=== PATIENT | female | born 1950 | race Caucasian/White ===

== ENCOUNTER → 2018-09-23 | Day surgery (SDC) | payer MEDICARE, BC ==
[~2018-09-23] MED LIST: ACYC400T PO; AMLO2.5T5 PO; CELE100C PO; CLOP75TA PO; CRESTOR20 MG PO; DULO60CA6 PO; EZET10TA18 PO; GABA800T5 PO; GLIP5TAB10 PO; HYDR12.575 PO; IPRA4AER IH; ISOS60TA2 PO; IV RINGERS,LACTATED 1000ML 1,000 ML IV SCH; LIDOCAINE 1% PF 2 ML VIAL. ID PRN; LIDOCAINE 2% PF 5 ML VIAL. ONE; METF10007 PO; METO-239 PO; MIDAZOLAM HCL/PF 2 MG/2 ML VIAL. IV PRN; PANT20TA2 PO; PROPOFOL 20 ML IV ONE; PROPOFOL 40 ML IV ONE; SITA50TA PO; TRAM50TA PO; fentaNYL PF VIAL 100 MCG/2 ML VIAL IV PRN
[2018-09-23 09:29] VITALS: BP 149/61
--- NOTE | 2018-09-26 16:05 | PATHOLOGY ---
[facility] Accession Number: [id number] . 01 Material submitted: . esophagus - DISTAL ESOPHAGEAL . Modifiers: distal . 01 Clinical history: . GERD/HX colon polyps . 02 Diagnosis: Esophagus, distal, biopsy: - Hyperplastic squamous epithelium. - Adjacent columnar epithelium with mild to moderate chronic inflammation. - No evidence of intestinal metaplasia. (SKM:adán; 09/26/2018) MBR/09/26/2018 . 02 Electronically signed: . Arthur Hawkins MD, Pathologist NPI- [id number] . 01 Gross description: . The specimen is received in formalin, labeled "Maurisio, Radha, distal esophageal biopsies" and consists of multiple translucent fragments of whalen-pink tissue measuring 1.1 x 0.5 x 0.1 cm in aggregate which are entirely submitted in A1. (SDY; 09/23/2018) SYU/SYU . 02 Pathologist provided ICD-10: K20.9 . 02 CPT . 888371 Specimen Comment: A courtesy copy of this report has been sent to Specimen Comment: [phone]. Specimen Comment: Report sent to Performed at: 01 [facility] [address], [place] [id number] MD Randy Ramos MD Phone: [phone] Performed at: 02 [facility] [address] [place], [place] [id number] MD Chai Lee MD Phone: [phone]
== END ==
LOC: SURG 07:14
PROVIDERS: ATTEND Internal Medicine Gastroenterology
DX: K21.0 Gastro-esophageal reflux disease with esophagitis (principal); K57.30 Diverticulosis of large intestine without perforation or abscess without bleeding; K64.0 First degree hemorrhoids; E11.9 Type 2 diabetes mellitus without complications; J43.9 Emphysema, unspecified; E78.00 Pure hypercholesterolemia, unspecified; I25.2 Old myocardial infarction; F15.90 Other stimulant use, unspecified, uncomplicated; Z86.010 Personal history of colon polyps; Z90.49 Acquired absence of other specified parts of digestive tract; Z90.710 Acquired absence of both cervix and uterus; Z98.51 Tubal ligation status; Z98.890 Other specified postprocedural states; Z98.42 Cataract extraction status, left eye; Z98.41 Cataract extraction status, right eye; Z72.89 Other problems related to lifestyle; Z87.891 Personal history of nicotine dependence; Z88.8 Allergy status to other drugs, medicaments and biological substances; Z91.013 Allergy to seafood; Z96.1 Presence of intraocular lens; Z79.84 Long term (current) use of oral hypoglycemic drugs
CPT/HCPCS: 43239; 45378; 88305; J2001; J2704